=== PATIENT | female | born 1945 | race African-American/Black ===

== ENCOUNTER 2018-02-26 22:13 | Emergency (ER) | payer MEDICARE, MEDICAID ==
[~2018-02-26] VITALS: Ht 160 cm; Wt 92.0 kg
[~2018-02-26 22:13] MED LIST: ALPR0.5T PO; AMLO1CAP PO; BACL-141 PO; CHOL100046 PO; ESOM40CA PO; LEVIMIR; LIRA0.6P2 SQ; MELO-106 PO; METO-539 PO; NOVOLOG
[2018-02-27] MEDS ORDERED: MORPHINE SULFATE 4 MG/ML CPJ (NOT FOR IM USE) IV ONE (00:15)
[2018-02-27] MEDS ORDERED: ONDANSETRON 4MG ODT PO ONE (00:15)
[2018-02-27] MEDS ORDERED: KETOROLAC 60MG/2ML VIAL IM ONE (01:15)
[2018-02-27 02:29] VITALS: BP 148/36
== END 2018-02-27 02:32 | disposition home or self-care (01) ==
LOC: ER 22:13
DX: B02.29 Other postherpetic nervous system involvement (principal); E11.9 Type 2 diabetes mellitus without complications; I10 Essential (primary) hypertension; M19.90 Unspecified osteoarthritis, unspecified site; Z79.899 Other long term (current) drug therapy; Z88.0 Allergy status to penicillin
CPT/HCPCS: 96372; 96374; 99284; J1885; J2270; Q0162